=== PATIENT | female | born 1975 | race Caucasian/White ===

== ENCOUNTER 2018-09-29 23:47 | Emergency (ER) | payer OTHER ==
[~2018-09-29] VITALS: Ht 165.1 cm; Wt 97.7 kg
[~2018-09-29 23:47] MED LIST: NOHOMEMEDICATIONS
[2018-09-30] MEDS ORDERED: FLEXERIL PO (01:33)
[2018-09-30] MEDS ORDERED: NORCO 7.5-3251 EACH PO (01:33)
[2018-09-30 01:40] VITALS: BP 162/94
== END 2018-09-30 01:41 | disposition home or self-care (01) ==
LOC: M.ERS 23:47
DX: S16.1XXA Strain of muscle, fascia and tendon at neck level, initial encounter (principal); Z90.710 Acquired absence of both cervix and uterus; Z98.890 Other specified postprocedural states; V89.2XXA Person injured in unspecified motor-vehicle accident, traffic, initial encounter; Y93.89 Activity, other specified; Y92.89 Other specified places as the place of occurrence of the external cause; Y99.8 Other external cause status